=== PATIENT | female | born 1965 | race Caucasian/White ===

== ENCOUNTER 2019-02-22 17:31 | Emergency (ER) | payer SELFPAY ==
[~2019-02-22] VITALS: Ht 165.1 cm; Wt 75.0 kg
[2019-02-22 18:01] VITALS: Ht 165.1 cm; Wt 75.0 kg
[2019-02-22] MEDS ORDERED: LISINOPRIL-HCT1 EAC7 PO (18:03)
[2019-02-22] MEDS ORDERED: VOLTAREN75 MG PO (21:21)
[2019-02-22 21:41] VITALS: BP 140/82
== END 2019-02-22 21:42 | disposition home or self-care (01) ==
LOC: D.ER 17:31
DX: M54.9 Dorsalgia, unspecified (principal); M62.830 Muscle spasm of back; F17.200 Nicotine dependence, unspecified, uncomplicated; I10 Essential (primary) hypertension

== ENCOUNTER 2019-03-29 21:31 | Emergency (ER) | payer MEDICAID ==
[~2019-03-29] VITALS: Ht 165.1 cm; Wt 73.6 kg
[~2019-03-29 21:31] MED LIST: LISINOPRIL-HCT1 EAC7 PO; VOLTAREN75 MG PO
[2019-03-29 21:46] VITALS: Ht 165.1 cm; Wt 73.6 kg
[2019-03-29] MEDS ORDERED: VIBRAMYCIN 100100 MG PO (22:35)
[2019-03-29] MEDS ORDERED: VOLTAREN75 MG PO (22:35)
[2019-03-29 22:55] VITALS: BP 120/80
== END 2019-03-29 22:55 | disposition home or self-care (01) ==
LOC: D.ER 21:31
DX: L03.317 Cellulitis of buttock (principal)

== ENCOUNTER 2019-04-22 13:33 | Emergency (ER) | payer MEDICAID ==
[~2019-04-22] VITALS: Ht 165.1 cm; Wt 73.6 kg
[~2019-04-22 13:33] MED LIST changes: +VIBRAMYCIN 100100 MG PO
[2019-04-22 13:37] VITALS: Ht 165.1 cm; Wt 73.6 kg
[2019-04-22 14:05] VITALS: BP 128/64
== END 2019-04-22 14:07 | disposition left against medical advice (07) ==
LOC: D.ER 13:33
DX: N64.4 Mastodynia (principal)

== ENCOUNTER 2019-06-14 18:00 | Emergency (ER) | payer MEDICAID ==
[~2019-06-14] VITALS: Ht 165.1 cm; Wt 72.7 kg
[2019-06-14 18:17] VITALS: BP 164/100; Ht 165.1 cm; Wt 72.7 kg
== END 2019-06-14 20:15 | disposition left against medical advice (07) ==
LOC: D.ER 18:00
DX: R07.9 Chest pain, unspecified (principal); F17.200 Nicotine dependence, unspecified, uncomplicated; I10 Essential (primary) hypertension

== ENCOUNTER 2019-09-24 20:21 | Emergency (ER) | payer MEDICAID ==
[~2019-09-24] VITALS: Ht 165.1 cm; Wt 73.6 kg
[2019-09-24 20:24] VITALS: Ht 165.1 cm; Wt 73.6 kg
[2019-09-24] MEDS ORDERED: TYLENOL W/CODEI1 TAB PO (20:49)
[2019-09-24 21:35] VITALS: BP 165/85
== END 2019-09-24 21:35 | disposition home or self-care (01) ==
LOC: D.ER 20:21
DX: S90.121A Contusion of right lesser toe(s) without damage to nail, initial encounter (principal); X58.XXXA Exposure to other specified factors, initial encounter; S92.912A Unspecified fracture of left toe(s), initial encounter for closed fracture; I10 Essential (primary) hypertension; Z72.0 Tobacco use